=== PATIENT | male | born 1965 | race Caucasian/White ===

== ENCOUNTER 2016-11-07 18:18 | Emergency (ER) | payer BC ==
[2016-11-07] MEDS ORDERED: TOPICAL LIDOCAINE W/ EPI 5 ML TOP ONE (18:41)
--- NOTE | 2016-11-07 18:49 | Emergency Department Record ---
History of Present Illness - General Chief complaint: Head Injury Stated complaint: HEAD INJURY/LAC Time Seen by Provider: 11/07/16 18:41 Source: Patient Mode of Arrival: Ambulatory Limitations: No limitations - History of Present Illness Initial comments: 51 yo male presents to ED following an unwitnessed fall while outdoors prior to arrival. Patient reports that he "became lightheaded", does not remember exactly what happened to injury the top of his head. Patient denies "passing out", but also denies a [id number] mechanism of injury. Patient denies health problems at his baseline, and denies headache symptoms. MD Complaint: Head injury Onset/Timin -: Minutes(s) Mechanism of Injury: Unsure Location: Other Loss of Consciousness: Unsure Previous Trauma to this Area: No Place: Outdoors Radiation: None Provoking factors: None known Other Injuries: Laceration Associated Symptoms: Denies other symptoms - Related Data Home Medications Medication Instructions Recorded Confirmed Last Taken No Home Med [NO HOME MEDS] 11/07/16 11/07/16 Unknown Allergies/Adverse reactions: Allergies Allergy/AdvReac Type Severity Reaction Status Date / Time No Known Drug Allergies Allergy Verified 11/07/16 18:29 Travel Screening - Travel/Exposure Within Last 30 Days Have you traveled within the last 30 days?: No Review of Systems Constitutional: Denies: Chills, Fever, Malaise, Night sweats Eyes: Denies: Eye discharge, Eye pain ENT: Denies: Congestion, Ear pain, Epistaxis Respiratory: Denies: Cough, Dyspnea Cardiovascular: Denies: Chest pain, Dyspnea on exertion Endocrine: Denies: Fatigue, Heat or cold intolerance Gastrointestinal: Denies: Abdominal pain, Nausea, Vomiting Genitourinary: Denies: Testicular pain, Testicular mass Musculoskeletal: Denies: Arthralgia, Back pain, Gout, Joint swelling Skin: Reports: Other (scalp laceration). Denies: Bruising, Change in color Neurological: Denies: Abnormal gait, Confusion, Headache Psychiatric: Denies: Anxiety Hematological/Lymphatic: Denies: Anemia, Blood Clots Past Medical History - SOCIAL HISTORY Smoking Status: Never smoker Alcohol Use: Heavy Alcohol Use Comment: 2-4 beers/day Drug Use: None - RESPIRATORY Hx Respiratory Disorders: No - CARDIOVASCULAR Hx Cardio Disorders: No - NEURO Hx Neuro Disorders: No - GI Hx GI Disorders: No - Hx Genitourinary Disorders: No - ENDOCRINE Hx Endocrine Disorders: No - MUSCULOSKELETAL Hx Musculoskeletal Disorders: Yes Hx Arthritis: Yes - PSYCH Hx Psych Problems: No - HEMATOLOGY/ONCOLOGY Hx Hematology/Oncology Disorders: No Family Medical History Any Significant Family History?: Yes Hx HTN: Mother Physical Exam - General General Appearance: Alert, Oriented x3, Mild distress, Other (Mild is mildly agitated on examination) Limitations: No limitations - Head Head exam: Normocephalic Head exam detail: Abrasion, General tenderness, Laceration (1.5 cm superficial laceration to the top of the scalp, does not gap apart, bleeding is controlled) . negative: Contusion, Gonzales's sign, Hematoma - Eye Eye exam: Normal appearance. negative: Conjunctival injection, Periorbital swelling, Periorbital tenderness, Scleral icterus - ENT Ear exam: negative: Auricular hematoma, Auricular trauma Nasal Exam: negative: Active bleeding, Discharge, Dried blood, Foreign body Mouth exam: negative: Drooling, Laceration, Muffled voice, Tongue elevation - Neck Neck exam: Normal inspection. negative: Meningismus, Tenderness - Respiratory Respiratory exam: Normal lung sounds bilaterally. negative: Respiratory distress, Rhonchi, Stridor, Wheezes - Cardiovascular Cardiovascular Exam: Regular rate, Normal rhythm, Normal heart sounds - GI/Abdominal GI/Abdominal exam: Soft. negative: Rebound, Rigid, Tenderness - Rectal Rectal exam: Deferred - exam: Deferred - Extremities Extremities exam: Normal inspection. negative: Calf tenderness, Pedal edema, Tenderness - Back Back exam: Denies: CVA tenderness (R), CVA tenderness (L) - Neurological Neurological exam: Alert, Normal gait, Oriented X3 - Psychiatric Psychiatric exam: Agitated - Skin Skin exam: Normal color. negative: Abrasion Type of lesion: negative: abrasion Course Vital Signs 11/07/16 18:22 Temperature 98.7 F Pulse Rate 94 H Respiratory 18 Rate Blood Pressure 115/91 Pulse Ox 97 - Reevaluation(s) Reevaluation #1: 11/07/16 18:46 I counseled the patient and his at the bedside that given the unknown etiology of the patient's symptoms, EKG, basic laboratory studies and likely head imaging is recommended. Patient reports "I don't need any of that, I know what happened", however patient is unable to verbalize specifically what actually happened. Patient is alert, oriented x 3, and based on my interaction and examination has the capacity to make rational decisions. He and his will discuss further evaluation while TLE is applied to the patient's wound. Reevaluation #2: 11/07/16 19:04 patient is unwilling to have basic labs drawn, however is willing to have EKG and CT imaging performed. Ordered for further evaluation. Procedure Note: Wound was cleaned with TLE solution, no FB's identified, and the 1.5 cm wound was closed primarily with Dermabond solution without complications. Patient tolerated the procedure well. Reevaluation #3: 11/07/16 19:17 EKG: NSR 94 LAD, normal intervals No acute ST-T wave changes are present Reevaluation #4: 11/07/16 19:40 CT Brain: Negative for intracranial injury Patient and his were updated on all results, patient reports that he is feeling fine and ready to go home. Patient is ambulating around the room appearing anxious to leave, but appears stable for discharge with his at this time. Disposition Disposition: Discharge Clinical Impression: Scalp laceration Qualifiers: Encounter type: initial encounter Qualified Code(s): S01.01XA - Laceration without foreign body of scalp, initial encounter Disposition: Home, Self-Care Condition: (2) Stable Instructions: Skin Adhesive Care (ED) Additional Instructions: Return to ED if your symptoms worsen or if you have any concerns. Follow-up with a provider from the referral list in 5-7 days for further evaluation of possible syncope. Forms: Patient Portal Access Time of Disposition: 19:42 Quality - Quality Measures Quality Measures: N/A - Blood Pressure Screening Does Patient Have Any of the Following: No Blood Pressure Classification: Hypertensive Reading Systolic Measurement: 115 Diastolic Measurement: 91 Screening for High Blood Pressure: < First Hypertensive BP, F/U Documented > [ [id number]] First Hypertensive Follow-up Interventions: Referral to alternative/primary care provider.
--- NOTE | 2016-11-08 08:57 | CT SCAN REPORT ---
EXAM: CT OF THE BRAIN HISTORY: FALL. TECHNIQUE: CT of the brain without contrast was obtained. Comparison: None. FINDINGS: The globes are intact. Mucosal thickening and polyp formation in the maxillary sinuses bilaterally. No displaced or depressed skull fracture. No intra or extraaxial hemorrhage. CT is limited for the evaluation of acute infarct. No CT evidence for large or territorial acute infarct. No mass or midline shift. IMPRESSION: NEGATIVE FOR ACUTE INTRACRANIAL ABNORMALITY. JOB NUMBER: [id number] MTDD
== END 2016-11-07 19:59 | disposition home or self-care (01) ==
LOC: ER 18:18
DX: S01.01XA Laceration without foreign body of scalp, initial encounter (principal); R42 Dizziness and giddiness; W19.XXXA Unspecified fall, initial encounter
CPT/HCPCS: 70450; 93005; 93010; 99284